=== PATIENT | female | born 1950 | race Hispanic/Latino ===

== ENCOUNTER 2021-06-18 02:12 | Observation (INO) | payer OTHER ==
[2021-06-18 03:07] LABS: Protime INR 1.12
[2021-06-18 03:08] LABS: Lymphocytes % 20.5 % (15.3-44.8); MPV 11.1 fL (7.6-11.3); RBC Red Blood Cell Count 3.63 M/uL (3.86-4.86)
[2021-06-18 03:29] LABS: Albumin 3.3 g/dL (3.4-5.0); Bilirubin Direct 0.1 mg/dL (0-0.2); Bilirubin Total 0.5 mg/dL (0.2-1.0); Magnesium 2.3 mg/dL (1.8-2.4); Potassium 3.4 mmol/L (3.5-5.1); Protein, Total 7.2 g/dL (6.4-8.2); Troponin High Sensitivity 30.5 pg/mL (<58.9)
[2021-06-18] MEDS ORDERED: NITROGLYCERIN 0.4 MG/TAB SL ONE (03:54)
[2021-06-18 03:56] LABS: SARS-COV-2 RT PCR NEGATIVE (NEGATIVE)
--- NOTE | 2021-06-18 04:23 | ER ---
Nurse's Notes [facility] Name: Janis Joseph Age: 71 yrs Sex: Female : 1950 Arrival Date: 06/18/2021 Time: :13 Bed 25 Private MD: Diagnosis: Chest pain, unspecified Presentation: 06/18 02:29 Chief complaint: Patient's son or daughter states: "11pm starts complaining of chest tw5 pain and she couldn't breathe and I gave her the medicine under her tongue and her inhaler. Waited and hour and pain and shob returned.". Coronavirus screen: Vaccine status: Patient reports receiving the 2nd dose of the covid vaccine. morderna. Ebola Screen: Patient negative for fever greater than or equal to 101.5 degrees Fahrenheit, and additional compatible Ebola Virus Disease symptoms Patient denies exposure to infectious person. Patient denies travel to an Ebola-affected area in the 21 days before illness onset. Initial Sepsis Screen: Does the patient meet any 2 criteria? HR > 90 bpm. No. Patient's initial sepsis screen is negative. Does the patient have a suspected source of infection? No. Patient's initial sepsis screen is negative. Risk Assessment: Do you want to hurt yourself or someone else? Patient reports no desire to harm self or others. Onset of symptoms was June 17, 2021 at 23:00. 02:29 Method Of Arrival: Wheelchair tw5 02:29 Acuity: YOANDY 2 tw5 Triage Assessment: 02:44 General: Appears uncomfortable, slender, Behavior is agitated, anxious. Pain: Complains tw5 of pain in chest Pain currently is 10 out of 10 on a pain scale. EENT: No deficits noted. Neuro: No deficits noted. Cardiovascular: Reports chest pain, shortness of breath. Respiratory: Reports shortness of breath at rest. Respiratory: Onset: The symptoms/episode began/occurred yesterday, the patient has moderate shortness of breath. GI: Reports nausea. : No deficits noted. Derm: No deficits noted. Musculoskeletal: No deficits noted. Historical: - Allergies: 02:32 No Known Allergies; tw5 - Home Meds: 02:32 bupropion HCl 150 mg Oral Tb24 1 tab once daily [Active]; tw5 02:33 catopril 12.5 12.5 mg daily [Active]; hydralazine 100 mg Oral tab 1 tab 2 times per day tw5 [Active]; nitroglycerin 0.4 mg SL subl 1 tab every 5 minutes for acute episode of anginal pain [Active]; isosorbide mononitrate 60 mg Oral Tb24 1 tab once daily [Active]; valsartan-hydrochlorothiazide 320-12.5 mg oral tab 1 tab once daily [Active]; tramadol-acetaminophen 37.5-325 mg oral tab 1 tabs tid [Active]; pantoprazole 40 mg oral TbEC 1 tab once daily [Active]; amlodipine 10 mg tab 1 tab once daily [Active]; fexofenadine 180 mg Oral tab 1 tab once daily for as needed [Active]; spironolactone 50 mg Oral tab 1 tab once daily [Active]; Zyrtec 10 mg Oral tab 1 tab once daily [Active]; paroxetine HCl 20 mg oral tab 1 tab once daily [Active]; metoprolol succinate 25 mg oral Tb24 1 tab once daily [Active]; aspirin 81 mg Oral TbEC 1 tab once daily [Active]; carvedilol 25 mg oral tab 1 tab 2 times per day [Active]; ibuprofen 400 mg Oral tab 1 tab every 6 hours for pain [Active]; clopidogrel 75 mg oral tab 1 tab once daily [Active]; atorvastatin 40 mg oral tab 1 tab once daily [Active]; zolpidem 10 mg Oral tab 1 tab once daily [Active]; 02:44 symbicort 2 puffs twice a day [Active]; tw5 - PMHx: 02:44 Hypertensive disorder; insomnia; tw5 - Immunization history:: Flu vaccine is up to date. - Social history:: Smoking status: Patient reports the use of cigarette tobacco products, smokes one pack cigarettes per day. Patient uses. Screenin:50 Abuse screen: Denies threats or abuse. Nutritional screening: No deficits noted. tw5 Tuberculosis screening: No symptoms or risk factors identified. Fall Risk Secondary diagnosis (15 points) IV access (20 points). Assessment: 02:30 General: Appears uncomfortable, well developed, well nourished, Behavior is anxious, tk1 restless. Pain: Complains of pain in chest Pain does not radiate. Pain currently is 10 out of 10 on a pain scale. Quality of pain is described as sharp, Pain began 4 hours ago. Is continuous, Alleviated by medications, Noted to be restless, Also complains of nausea, Current management. Cardiovascular: Heart tones S1 S2 Capillary refill < 3 seconds Patient's skin is warm and dry. Rhythm is sinus rhythm with unifocal PVCs Chest pain Parent/caregiver reports patient has had chest pain, shortness of breath. Respiratory: Airway is patent Respiratory effort is even, Respiratory pattern is regular, symmetrical, Breath sounds are diminished bilaterally. in left lower lobe and right lower lobe. 03:45 Reassessment: Patient c/o of continued pain to chest rates 9/10. Dr. Temple updated. New tw5 order received. Pain: Complains of pain in chest Pain currently is 9 out of 10 on a pain scale. Quality of pain is described as sharp, Pain began Is continuous. 04:52 Reassessment: Hospitalist in for assessment of patient. Patient to be admitted to [facility] tk1 Surg RM 228. General: Appears in no apparent distress. Patient resting with eyes closed. Respirations even and unlabored. VSS.. 05:06 Reassessment: Report called to ROSALIO Paige. tk1 Vital Signs: 02:29 BP 156 / 103; Pulse 96; Resp 22; Temp 98.1(O); Pulse Ox 96% on R/A; Weight 57.61 kg; tw5 Height 5 ft. 2 in. (157.48 cm); Pain 10/10; 02:30 BP 170 / 66 LA Supine (auto/reg); Pulse 94 MON; Resp 22 S; Temp 98.5(O); Pulse Ox 94% tk1 on R/A; 03:01 Temp 98.8(O); tw5 03:30 BP 148 / 58 RA Supine (auto/reg); Pulse 87 MON; Resp 16 S; Pulse Ox 95% on R/A; tw5 04:22 Pain 0/10; tw5 04:57 BP 162 / 64 RA Supine (auto/reg); Pulse 88 MON; Resp 18; Pulse Ox 92% on R/A; Pain 0/10;tk1 02:29 Body Mass Index 23.23 (57.61 kg, 157.48 cm) tw5 03:30 Sinus Rhythm with Unifocal PVCs tw5 [place] Coma Score: 02:30 Eye Response: spontaneous(4). Verbal Response: oriented(5). Motor Response: obeys tk1 commands(6). Total: 15. ED Course: 02:13 Patient arrived in ED. bp1 02:17 Yoanna Temple MD is Attending Physician. sp3 02:30 No provider procedures requiring assistance completed. Inserted saline lock: 20 gauge tk1 in right forearm, using aseptic technique. Accessed. 02:30 Fall risk band placed. Placed in gown. Bed in low position. Call light in reach. Side tk1 rails up X2. Adult w/ patient. environmental monitoring specialist on. Pulse ox on. NIBP on. 02:32 Triage completed. tw5 02:44 Arm band placed on left wrist. tw5 02:46 Jackie Oro is Primary Nurse. tk1 02:49 Basic Metabolic Panel Sent. tk1 02:49 CBC with Diff Sent. tk1 02:49 Lactate Sent. tk1 02:49 Basic Metabolic Panel Sent. tk1 02:49 CBC with Automated Diff Sent. tk1 02:49 LFT's Sent. tk1 02:49 Magnesium Sent. tk1 02:49 NT PRO-BNP Sent. tk1 02:49 PT-INR Sent. tk1 02:50 Troponin HS Sent. tk1 02:50 COVID-19/FLU A+B Sent. tk1 02:50 COVID-19/FLU A+B (Document "Date of Onset" if Symptomatic) Sent. tk1 03:08 XRAY Chest (1 view) In Process Unspecified. EDMS 04:22 Kashif Cates MD is Hospitalizing Provider. sp3 Administered Medications: 03:50 Drug: Nitroglycerin 0.4 mg Route: Sublingual; tw5 04:22 Follow up: Pain 0/10 Adult tw5 Output: 03:20 Stool: 1 (Formed Stool) ; Total: 0ml. tw5 Outcome: 04:22 Decision to Hospitalize by Provider. sp3 05:49 Patient left the ED. mw2 05:59 Admitted to Med/surg accompanied by nurse, family with patient, via wheelchair, room tk1 228, with chart, Report called to ROSALIO Paige 05:59 Condition: stable Signatures: Dispatcher [employer] EDMS Racquel Navarro mw2 Nadja Hawkins bp1 Yoanna Temple MD MD sp3 Lianne Meadows tw5 Jackie Oro tk1
--- NOTE | 2021-06-18 04:23 | EDPHYS ---
Physician Documentation [facility] Name: Janis Joseph Age: 71 yrs Sex: Female : 1950 Arrival Date: 06/18/2021 Time: 02:13 Bed 25 Private MD: ED Physician Yoanna Temple HPI: 06/18 02:57 This 71 yrs old Female presents to ER via Wheelchair with complaints of sp3 Breathing Difficulty, Chest Pain > 30 y/o. 02:57 71-year-old female with a history of hypertension, angina, likely coronary artery sp3 disease presents to the ED for 2-hour history of chest pain and difficulty breathing that woke her up from sleep. Per daughter, patient has had mild difficulty breathing for the last couple of days but the chest pain is new for tonight. Pain is described as waxing and waning and substernal chest in nature. Patient denies headache, neck pain, back pain, syncope, near syncope, neuro symptoms, diaphoresis, left arm pain, rash, nausea, vomiting, diarrhea, fever, URI symptoms, or any other ROS at this time.. Historical: - Allergies: 02:32 No Known Allergies; tw5 - Home Meds: 02:32 bupropion HCl 150 mg Oral Tb24 1 tab once daily [Active]; tw5 02:33 catopril 12.5 12.5 mg daily [Active]; hydralazine 100 mg Oral tab 1 tab 2 times per day tw5 [Active]; nitroglycerin 0.4 mg SL subl 1 tab every 5 minutes for acute episode of anginal pain [Active]; isosorbide mononitrate 60 mg Oral Tb24 1 tab once daily [Active]; valsartan-hydrochlorothiazide 320-12.5 mg oral tab 1 tab once daily [Active]; tramadol-acetaminophen 37.5-325 mg oral tab 1 tabs tid [Active]; pantoprazole 40 mg oral TbEC 1 tab once daily [Active]; amlodipine 10 mg tab 1 tab once daily [Active]; fexofenadine 180 mg Oral tab 1 tab once daily for as needed [Active]; spironolactone 50 mg Oral tab 1 tab once daily [Active]; Zyrtec 10 mg Oral tab 1 tab once daily [Active]; paroxetine HCl 20 mg oral tab 1 tab once daily [Active]; metoprolol succinate 25 mg oral Tb24 1 tab once daily [Active]; aspirin 81 mg Oral TbEC 1 tab once daily [Active]; carvedilol 25 mg oral tab 1 tab 2 times per day [Active]; ibuprofen 400 mg Oral tab 1 tab every 6 hours for pain [Active]; clopidogrel 75 mg oral tab 1 tab once daily [Active]; atorvastatin 40 mg oral tab 1 tab once daily [Active]; zolpidem 10 mg Oral tab 1 tab once daily [Active]; 02:44 symbicort 2 puffs twice a day [Active]; tw5 - PMHx: 02:44 Hypertensive disorder; insomnia; tw5 - Immunization history:: Flu vaccine is up to date. - Social history:: Smoking status: Patient reports the use of cigarette tobacco products, smokes one pack cigarettes per day. Patient uses. ROS: 02:58 Constitutional: Negative for fever, chills, and weight loss, Eyes: Negative for injury, sp3 pain, redness, and discharge, ENT: Negative for injury, pain, and discharge, Neck: Negative for injury, pain, and swelling, Abdomen/GI: Negative for abdominal pain, nausea, vomiting, diarrhea, and constipation, Back: Negative for injury and pain, MS/Extremity: Negative for injury and deformity, Skin: Negative for injury, rash, and discoloration, Neuro: Negative for headache, weakness, numbness, tingling, and seizure, Psych: Negative for depression, anxiety, suicide ideation, homicidal ideation, and hallucinations, Allergy/Immunology: Negative for hives, rash, and allergies, Endocrine: Negative for neck swelling, polydipsia, polyuria, polyphagia, and marked weight changes. 02:58 All other systems are negative. Exam: 02:58 Constitutional: This is a well developed, well nourished patient who is awake, alert, sp3 and in no acute distress. Head/Face: Normocephalic, atraumatic. Eyes: Pupils equal round and reactive to light, extra-ocular motions intact. Lids and lashes normal. Conjunctiva and sclera are non-icteric and not injected. Cornea within normal limits. Periorbital areas with no swelling, redness, or edema. ENT: Nares patent. No nasal discharge, no septal abnormalities noted. External auditory canals are clear. Oropharynx with no redness, swelling, or masses, exudates, or evidence of obstruction, uvula midline. Mucous membranes moist. Neck: Trachea midline, no thyromegaly or masses palpated, and no cervical lymphadenopathy. Supple, full range of motion without nuchal rigidity, or vertebral point tenderness. No Meningismus. Chest/axilla: Normal chest wall appearance and motion. Nontender with no deformity. No lesions are appreciated. Cardiovascular: Regular rate and rhythm with a normal S1 and S2. No gallops, murmurs, or rubs. Normal PMI, no JVD. No pulse deficits. Respiratory: Lungs have equal breath sounds bilaterally, clear to auscultation and percussion. No rales, rhonchi or wheezes noted. No increased work of breathing, no retractions or nasal flaring. Abdomen/GI: Soft, non-tender, with normal bowel sounds. No distension or tympany. No guarding or rebound. No evidence of tenderness throughout. Back: No spinal tenderness. No costovertebral tenderness. Full range of motion. Skin: Warm, dry with normal turgor. Normal color with no rashes, no lesions, and no evidence of cellulitis. MS/ Extremity: Pulses equal, no cyanosis. Neurovascular intact. Full, normal range of motion. Neuro: Awake and alert, GCS 15, oriented to person, place, time, and situation. Cranial nerves II-XII grossly intact. Motor strength 5/5 in all extremities. Sensory grossly intact. Cerebellar exam normal. Normal gait. Psych: Awake, alert, with orientation to person, place and time. Behavior, mood, and affect are within normal limits. 02:58 ECG was reviewed by the Attending Physician. Normal sinus rhythm at 91 bpm with normal intervals, normal QRS, normal axis, nonspecific diffuse ST/T changes without evidence of acute ischemia. Poor R wave progression in the precordial leads is noted. Limited interpretation secondary to motion artifact. Vital Signs: 02:29 BP 156 / 103; Pulse 96; Resp 22; Temp 98.1(O); Pulse Ox 96% on R/A; Weight 57.61 kg; tw5 Height 5 ft. 2 in. (157.48 cm); Pain 10/10; 02:30 BP 170 / 66 LA Supine (auto/reg); Pulse 94 MON; Resp 22 S; Temp 98.5(O); Pulse Ox 94% tk1 on R/A; 03:01 Temp 98.8(O); tw5 03:30 BP 148 / 58 RA Supine (auto/reg); Pulse 87 MON; Resp 16 S; Pulse Ox 95% on R/A; tw5 04:22 Pain 0/10; tw5 04:57 BP 162 / 64 RA Supine (auto/reg); Pulse 88 MON; Resp 18; Pulse Ox 92% on R/A; Pain 0/10;tk1 02:29 Body Mass Index 23.23 (57.61 kg, 157.48 cm) tw5 03:30 Sinus Rhythm with Unifocal PVCs tw5 [place] Coma Score: 02:30 Eye Response: spontaneous(4). Verbal Response: oriented(5). Motor Response: obeys tk1 commands(6). Total: 15. MDM: 02:29 Patient medically screened. sp3 03:00 Data reviewed: vital signs, nurses notes. ED course: 71-year-old with chest pain and sp3 shortness of breath. Differential diagnosis includes acute coronary syndrome, angina, pneumonia, COVID-19, bronchitis, other viral syndrome. Low index of suspicion for pulmonary embolism, aortic dissection, aortic aneurysm, or other process at this time. Patient is resting comfortably with normal vital signs other than being slightly hypertensive. Pulse oxygenation is normal. Disposition based on data acquisition and patient course.. 03:50 ED course: Laboratory values reviewed and cardiac markers are negative. Chest x-ray sp3 demonstrates mild viral pattern with cardiomegaly. COVID-19 test is still pending. Disposition will be observation for chest pain cardiac rule out plus minus COVID-19 diagnosis.. 04:21 ED course: COVID-19 test is negative. Laboratory values are unremarkable other than a sp3 mild elevation in BNP. Will admit patient in observation status for serial cardiac markers and cardiology consult.. 06/18 02:22 Order name: COVID-19/FLU A+B (Document "Date of Onset" if Symptomatic) mw2 06/18 02:22 Order name: COVID-19/FLU A+B; Complete Time: 04:21 EDMS 06/18 02:29 Order name: Basic Metabolic Panel sp3 06/18 02:29 Order name: CBC with Diff sp3 06/18 02:29 Order name: LFT's; Complete Time: 03:49 sp3 06/18 02:29 Order name: Magnesium; Complete Time: 03:49 sp3 06/18 02:29 Order name: NT PRO-BNP; Complete Time: 03:49 sp3 06/18 02:29 Order name: PT-INR; Complete Time: 03:49 sp3 06/18 02:29 Order name: Troponin HS; Complete Time: 03:49 sp3 06/18 02:29 Order name: XRAY Chest (1 view) sp3 06/18 02:30 Order name: Basic Metabolic Panel; Complete Time: 03:49 EDMS 06/18 02:30 Order name: CBC with Automated Diff; Complete Time: 03:49 EDMS 06/18 02:46 Order name: Lactate; Complete Time: 03:49 sp3 06/18 02:29 Order name: EKG; Complete Time: 02:30 sp3 06/18 02:29 Order name: Cardiac monitoring; Complete Time: 02:49 sp3 06/18 02:29 Order name: EKG - Nurse/Tech; Complete Time: 02:48 sp3 06/18 02:29 Order name: IV Saline Lock; Complete Time: 02:48 sp3 06/18 02:29 Order name: Labs collected and sent; Complete Time: 02:48 sp3 06/18 02:29 Order name: O2 Per Protocol; Complete Time: 02:49 sp3 06/18 02:29 Order name: O2 Sat Monitoring; Complete Time: 02:49 sp3 06/18 04:21 Order name: CONS Physician Consult EDMS Administered Medications: 03:50 Drug: Nitroglycerin 0.4 mg Route: Sublingual; tw5 04:22 Follow up: Pain 0/10 Adult tw5 Disposition Summary: 06/18/21 04:22 Hospitalization Ordered Hospitalization Status: Observation sp3 Provider: Kashif Cates sp3 Location: Telemetry/MedSurg (observation) sp3 Condition: Stable sp3 Problem: an acute exacerbation sp3 Symptoms: have worsened sp3 Bed/Room Type: Standard sp3 Room Assignment: 228(06/18/21 04:42) eb1 Diagnosis - Chest pain, unspecified sp3 Forms: - Medication Reconciliation Form sp3 - SBAR form sp3 Signatures: Dispatcher [employer] EDJacinta Johns, RN RN eb1 Yoanna Temple MD MD sp3 Lianne Meadows tw5 Corrections: (The following items were deleted from the chart) 04:42 04:22 mary echavarria
--- NOTE | 2021-06-18 04:59 | P.HP ---
Certification for Inpatient Patient admitted to: Observation With expected LOS: <2 Midnights Patient will require the following post-hospital care: None Practitioner: I am a practitioner with admitting privileges, knowledge of patient current condition, hospital course, and medical plan of care. Services: Services provided to patient in accordance with Admission requirements found in Title 42 Section 412.3 of the Code of Federal Regulations Patient History Date of Service: 06/18/21 Reason for admission: chest pain History of Present Illness: Ms. Joseph is a 71 yo F with HTN, CAD, depression, & tobacco use disorder who presents with 10/10 chest pain waking her up tonight while she was asleep. She says she felt like she could not breathe. Her daughter took her vitals and her BP was elevated, so she gave her one of her antihypertensives and a nitroglycerin pill. The pain resolved for an hour and then began again. She could not lie down or get comfortable. She asked to go to the hospital. Here she received another nitroglycerine and now she is pain free. She is scheduled for an endarterectomy in the next few weeks. K 3.4 BNP 5045 Allergies No Known Allergies Allergy (Unverified 06/18/21 04:50) - Past Medical/Surgical History -: HTN -: CAD -: depression Past Surgical History: Patient denies surgical history - Family History Family History: Reviewed- Non-Contributory - Social History Smoking Status: Current every day smoker Alcohol use: No CD- Drugs: No Caffeine use: Yes Place of Residence: Home Review of Systems 10-point ROS is otherwise unremarkable General: Unremarkable Eyes: Unremarkable ENT: Unremarkable Respiratory: Shortness of Breath Cardiovascular: Chest Pain Gastrointestinal: Unremarkable Genitourinary: Unremarkable Musculoskeletal: Unremarkable Integumentary: Unremarkable Neurological: Unremarkable Lymphatics: Unremarkable Physical Examination - Physical Exam General: Alert, In no apparent distress HEENT: Atraumatic, PERRLA, Mucous membr. moist/pink, EOMI, Sclerae nonicteric Neck: Supple, 2+ carotid pulse no bruit, No LAD, Without JVD or thyroid abnormality Respiratory: Clear to auscultation bilaterally, Normal air movement Cardiovascular: No edema, Regular rate/rhythm, Normal S1 S2 Gastrointestinal: Normal bowel sounds, No tenderness Musculoskeletal: No tenderness Integumentary: No rashes Neurological: Normal speech, Normal strength at 5/5 x4 extr, Normal tone, Normal affect Lymphatics: No axilla or inguinal lymphadenopathy - Studies Laboratory Data (last 24 hrs) 06/18/21 02:30: PT 12.9 H, INR 1.12 06/18/21 02:30: WBC 9.90, Hgb 12.0, Hct 35.0 L, Plt Count 177 06/18/21 02:30: Sodium 138, Potassium 3.4 L, BUN 19 H, Creatinine 1.07, Glucose 112 H, Magnesium 2.3, Total Bilirubin 0.5, AST 14 L, ALT 13, Alkaline Phosphatase 79 Assessment and Plan - Problems (Diagnosis) (1) Tobacco use disorder Current Visit: Yes Status: Chronic (2) HTN (hypertension) Current Visit: Yes Status: Chronic Qualifiers: Hypertension type: primary hypertension Qualified Code(s): I10 - Essential (primary) hypertension (3) Depression Current Visit: Yes Status: Chronic Qualifiers: Depression Type: unspecified Qualified Code(s): F32.A - Depression, unspe cified (4) CAD (coronary artery disease) Current Visit: Yes Status: Chronic Qualifiers: Coronary Disease-Associated Artery/Lesion type: unspecified vessel or lesion type [place] vs. transplanted heart: [place] heart Associated angina: with unspecified form of angina Qualified Code(s): I25.119 - Atherosclerotic heart disease of [place] coronary artery with unspecified angina pectoris (5) Chest pain Current Visit: Yes Status: Acute Qualifiers: Chest pain type: unspecified Qualified Code(s): R07.9 - Chest pain, unspecified - Plan on tele cardiology consulted trend troponins, repeat EKG daily ASA, metoprolol, atorvastatin PRN morphine and nitroglycerin lipid and thyroid panel pending potassium replacement protocol reconcile and continue home medications DVT ppx Discharge Plan: Home Plan to discharge in: 24 Hours - Advance Directives Does patient have a Living Will: No Does patient have a Durable POA for Healthcare: No - Code Status/Comfort Care Code Status Assessed: Yes (full code ) Critical Care: No Time Spent Managing Pts Care (In Minutes): 70
[2021-06-18] MEDS ORDERED: ACETAMINOPHEN 500 MG TAB PO PRN (05:52)
[2021-06-18] MEDS ORDERED: MORPHINE 2 MG/ML SYR IV PRN (05:52)
[2021-06-18] MEDS ORDERED: ONDANSETRON 4 MG/2 ML VIAL IV PRN (05:52)
[2021-06-18] MEDS ORDERED: NITROGLYCERIN 0.4 MG/TAB SL PRN (05:52)
[2021-06-18] MEDS: METOPROLOL TAR 25 MG TAB PO SCH ×2 (06:24→17:34)
[2021-06-18 07:28] VITALS: BMI 23.2
[2021-06-18 08:21] LABS: Thyroid Stimulating Hormone 1.28 uIU/mL (0.360-3.740)
[2021-06-18] MEDS ORDERED: ASPIRIN EC 81 MG TAB PO SCH (09:00)
[2021-06-18] MEDS ORDERED: ENOXAPARIN 40 MG/0.4 ML SQ SCH (09:00)
[2021-06-18] MEDS ORDERED: POTASSIUM CL SA 10 MEQ TAB PO ONE (09:00)
--- NOTE | 2021-06-18 10:06 | RAD REPORT ---
EXAM DESCRIPTION: RAD - Chest Single View - 06/18/2021 3:08 am CLINICAL HISTORY: CHEST PAIN Chest pain. COMPARISON: No comparisons FINDINGS: Portable technique limits examination quality. Moderate bilateral pulmonary opacities are present most compatible with pneumonia or pulmonary edema. The heart is mildly enlarged in size. No displaced fractures.
[2021-06-18] MEDS ORDERED: HYDROCORTISONE SUC 100 MG INJ IV ONE (14:18)
[2021-06-18 16:04] VITALS: BP 107/52; TEMP 98.6
[2021-06-18 16:40] VITALS: O2SAT 95
--- NOTE | 2021-06-18 16:43 | CON ---
Date of Consultation: 06/18/2021 Reason For Consultation: Chest pain. History Of Present Illness: A 71-year-old female with history of hypertension, coronary artery disea se, smoker, presented with chest pain along with some shortness of breath. Pain is related to activi ties and radiates to the left lower extremity. No chest pain at the present time and pain responded to nitroglycerin. Past Medical History: Hypertension, coronary artery disease, depression. Medications: Refer to reconciliation sheet for detailed list. Allergies: NO KNOWN DRUG ALLERGIES. Family History: No premature coronary artery disease or cancer. Social History: She is an active smoker. Does not drink, use any drugs. Review of Systems: All systems reviewed and they were negative except for what was mentioned in HPI. Physical Examination: Vital Signs: Temperature is 97.8, pulse 63, breathing at 16, blood pressure 122/57, saturating 97%. General: Pleasant, alert female, in no apparent distress. Head and Neck: Pupils are equal, reactive to light. Intact eye movements. No JVD. No cervical lym phadenopathy. Neck is supple. Thyroid not enlarged. Lungs: Clear to auscultation bilaterally. No rhonchi, rales, or crackles. No accessory muscle use. Heart: Regular rate and rhythm. No extra sounds. Abdomen: Soft, nontender. Bowel sounds positive. No organomegaly. No masses or hernia. No rigidi ty or tenderness. Extremities: No edema, clubbing, or cyanosis. Intact pulses. Skin: No rashes. Neurologic: Alert, awake, oriented x3. No acute focal deficits appreciated. Lymph Nodes: No cervical or axillary lymphadenopathy. Investigations: Troponins x2 were negative. Assessment And Recommendations: Chest pain. No history of coronary artery disease. She is active s moker. Cardiac enzymes are negative. If the patient remains chest pain free, she can be released an d schedule stress test as an outpatient and an echocardiogram. If she continues to have chest pain, then plan for inpatient stress test before discharge. Thank you for the consult. /LEONARDO Voice ID: [id number] Report ID: [id number]
[2021-06-18] MEDS ORDERED: ATORVASTATIN 40 MG TAB PO SCH (21:00)
== END 2021-06-18 06:50 | disposition home or self-care (01) ==
LOC: ER 02:12 → ERHOLD 04:30 → 2ND 05:17
PROVIDERS: ADMIT Hospitalist; ATTEND Hospitalist
DX: I25.119 Atherosclerotic heart disease of native coronary artery with unspecified angina pectoris (principal); I10 Essential (primary) hypertension; F32.A Depression, unspecified; F17.210 Nicotine dependence, cigarettes, uncomplicated; Z20.822 Contact with and (suspected) exposure to COVID-19
CPT/HCPCS: 93005; 85025; 80048; 36415; 83735; 84132; 85610; 80061; 80076; 83605; 84443; 84484 ×3; 84439; 83880; 0240U; 71045; 94760 ×2; 99285; J1650; J1720; G0378 ×2